=== PATIENT | female | born 1995 | race Caucasian/White ===

== ENCOUNTER 2020-09-08 16:18 | Emergency (ER) | payer MEDICAID ==
[~2020-09-08] VITALS: Ht 172.7 cm; Wt 91.9 kg
[2020-09-08 16:42] VITALS: BP 131/72
[2020-09-08] MEDS ORDERED: acetaminophen 325mg tablet PO ONE (17:20)
== END 2020-09-08 17:57 | disposition home or self-care (01) ==
LOC: ER 16:18
DX: S09.90XA Unspecified injury of head, initial encounter (principal); R51.9 Headache, unspecified; Z86.69 Personal history of other diseases of the nervous system and sense organs; Z88.0 Allergy status to penicillin; X58.XXXA Exposure to other specified factors, initial encounter; Y93.89 Activity, other specified; Y92.89 Other specified places as the place of occurrence of the external cause; Y99.8 Other external cause status
CPT/HCPCS: 70450; 99284

== ENCOUNTER 2021-12-16 18:53 | Emergency (ER) | payer MEDICAID ==
[~2021-12-16] VITALS: Ht 170.2 cm; Wt 90.6 kg
[2021-12-16 19:20] VITALS: BP 121/71
[2021-12-16] MEDS ORDERED: acetaminophen 325mg tablet PO ONE (20:55)
[2021-12-16 21:15] LABS: CLARITY,URINE CLEAR (Clear); COLOR,URINE YELLOW (Yellow); GLUCOSE, URINE NEGATIVE (Neg); KETONES,URINE TRACE mg/dl (Neg); LEUKOCYTE ESTERASE ,URINE NEGATIVE (Neg); NITRITES, URINE NEGATIVE (Neg); OCCULT BLOOD,URINE NEGATIVE (Neg); PROTEIN,URINE NEGATIVE (Neg); UROBILINOGEN,URINE 0.2 E.U/dL (0.2-1.0)
[2021-12-16 21:27] LABS: UA COLLECTION TYPE NON-SPECIFIED
== END 2021-12-16 22:02 | disposition home or self-care (01) ==
LOC: ER 18:54
DX: O26.892 Other specified pregnancy related conditions, second trimester (principal); M54.50 Low back pain, unspecified; R42 Dizziness and giddiness; Z88.0 Allergy status to penicillin; Z3A.20 20 weeks gestation of pregnancy
CPT/HCPCS: 81003; 99283